=== PATIENT | male | born 1975 | race Caucasian/White ===

== ENCOUNTER 2023-10-30 20:03 | Emergency (ER) | payer OTHER ==
[~2023-10-30] VITALS: Ht 180.3 cm; Wt 105.0 kg
[2023-10-30 21:50] LABS: BASOPHILS 0.8 % (0-2); EOSINOPHILS 3.2 % (0-6); HEMATOCRIT 52.3 % (35.0-50.0); HEMOGLOBIN 17.5 g/dL (12.0-18.0); LYMPHOCYTES 21.2 % (24-44); MCH 33.9 (27-36); MCHC 33.5 g/dl (30-36); MCV 101.3 fl (81-99); MONOCYTES 10.8 % (0-12); PLATELET COUNT 257 K/uL (140-440); RBC 5.16 M/ul (4.3-5.7); RDW 13.4 (10.5-15.0)
[2023-10-30 22:13] LABS: ALBUMIN 3.8 g/dL (3.4-5.0); ALBUMIN/GLOBULIN RATIO 0.9 (1.1-2.4); ANION GAP 12.3 (7-21); BILIRUBIN, TOTAL 0.7 ng/dL (0.2-1.0); BUN/CREATININE RATIO 15.83 (6.0-28.6); CALCIUM 9.8 mg/dL (8.5-10.1); CREATININE, SERUM 1.2 mg/dL (0.70-1.30); POTASSIUM 4.3 mmol/L (3.5-5.1)
[2023-10-30] MEDS ORDERED: TRAMADOL HCL50 MG PO (22:49)
[2023-10-30 23:13] VITALS: BP 156/99
== END 2023-10-30 23:07 | disposition home or self-care (01) ==
LOC: ED 20:03
PROVIDERS: Family Medicine
DX: S20.211A Contusion of right front wall of thorax, initial encounter (principal); X58.XXXA Exposure to other specified factors, initial encounter
CPT/HCPCS: 36415; 71260; 74177; 80053; 85025; A9270; Q9967